=== PATIENT | male | born 1990 | race Two or more races ===

== ENCOUNTER 2021-05-02 09:08 | Emergency (ER) | payer OTHER ==
[~2021-05-02] VITALS: Ht 170.2 cm; Wt 76.2 kg
--- NOTE | 2021-05-02 09:14 | NUR ---
URINE AND COVID SWAB COLLECTED AND SENT TO LAB
--- NOTE | 2021-05-02 09:14 | NUR ---
Emmanuel roth in ED - 05/02/21 at 0914 by GABRIELA URINE AND COVID SWAB COLLECTED AND SENT TO LAB
[2021-05-02 09:21] VITALS: BP 131/75
--- NOTE | 2021-05-02 09:25 | NUR ---
SEEN AND EXAMINED BY DR CARY
[2021-05-02] MEDS ORDERED: TDAP [DIPH/PERTUSSIS/TET] 0.5 ML VIAL IM ONE (09:30)
[2021-05-02] MEDS ORDERED: LIDOCAINE HCL/PF 1% 30 ML VIAL TP ONE (09:30)
[2021-05-02] MEDS ORDERED: LIDOCAINE 1% INJ 50 ML MDV IJ ONE (09:33)
--- NOTE | 2021-05-02 10:14 | NUR ---
Patient discharged to home in stable condition. Written and verbal after care instructions given. Patient verbalizes understanding of instruction.
== END 2021-05-02 10:16 | disposition home or self-care (01) ==
LOC: ER 09:14
DX: S61.412A Laceration without foreign body of left hand, initial encounter (principal); W26.0XXA Contact with knife, initial encounter; Y93.89 Activity, other specified; Y92.89 Other specified places as the place of occurrence of the external cause; Y99.8 Other external cause status
CPT/HCPCS: 12002; 99282; J3490 ×2